=== PATIENT | female | born 1995 | race Caucasian/White ===

== ENCOUNTER 2021-02-26 21:31 | Emergency (ER) | payer OTHER ==
[2021-02-26 21:37] VITALS: BP 116/75; PULSE 106; TEMP 98; BMI 31.2
[2021-02-26] MEDS ORDERED: LACTATED RINGERS SOLUTION 1000 ML INFUS.BAG IV ONE (21:56)
[2021-02-26] MEDS ORDERED: ONDANSETRON 4 MG/2 ML VIAL IVPUSH ONE (21:57)
[2021-02-26] MEDS ORDERED: ONDANSETRON 4 MG/2 ML VIAL ONE (22:09)
[2021-02-26 22:40] LABS: BASO % 0.5 % (0-2.0); EOS % 0.3 % (0-4.5); HEMATOCRIT 38.2 % (32.4-45.2); HEMOGLOBIN 12.9 GM/dL (10.7-15.3); LYMPH % 34.3 % (8-40); MCH 28.7 pg (25.7-33.7); MCHC 33.7 g/dl (32.0-36.0); MEAN CELL VOLUME 85.3 fl (80-96); MEAN PLT VOLUME 9.1 fl (7.5-11.1); MONO % 4.9 % (3.8-10.2); PLATELET COUNT 263 10^3/uL (134-434); RBC 4.48 M/mm3 (3.60-5.2); RDW 12.6 % (11.6-15.6); WHITE BLOOD COUNT 4.8 K/mm3 (4.0-10.0)
[2021-02-26 22:55] LABS: CHLORIDE 114 mmol/L (98-107); SODIUM 147 mmol/L (136-145)
[2021-02-26 22:58] LABS: ALBUMIN 3.7 g/dl (3.4-5.0); ANION GAP 9 MMOL/L (8-16); BLOOD UREA NITROGEN 13.3 mg/dL (7-18); CALCIUM 8.4 mg/dL (8.5-10.1); CO2 24 mmol/L (21-32); GLUCOSE,RANDOM 94 mg/dL (74-106)
[2021-02-26 23:01] LABS: CREATININE 0.6 mg/dL (0.55-1.3); SGOT/AST 10 U/L (15-37); SGPT/ALT 24 U/L (13-61)
[2021-02-26 23:03] LABS: BILIRUBIN,TOTAL 0.2 mg/dL (0.2-1); TOT PROT 7.4 g/dl (6.4-8.2)
[2021-02-26 23:04] LABS: ALK PHOS 73 U/L (45-117)
[2021-02-27 00:52] LABS: EPI CELLS 26 /uL (0-25.1); HYALINE CASTS 2 /uL (0-3.1); URINE APPEARANCE CLEAR; URINE BACTERIA 2306 /uL (0-1359); URINE BILIRUBIN NEGATIVE (NEGATIVE); URINE COLOR YELLOW; URINE GLUCOSE (UA) NEGATIVE (NEGATIVE); URINE KETONE NEGATIVE (NEGATIVE); URINE LEUK ESTERASE 1+ (NEGATIVE); URINE NITRITE NEGATIVE (NEGATIVE); URINE PROTEIN NEGATIVE (NEGATIVE); URINE RBC 14 /uL (0-23.9); URINE UROBILINOGEN 0.2 mg/dL (0.2-1.0); URINE WBC 29 /uL (0-25.8)
[2021-02-27 02:11] LABS: COCAINE, UR NEGATIVE (NEGATIVE); METHADONE, UR NEGATIVE (NEGATIVE); OPIATES, URI NEGATIVE (NEGATIVE); PHENCYCLIDINE,URINE NEGATIVE (NEGATIVE); URINE AMPHETAMINES NEGATIVE (NEGATIVE); URINE BARBITURATES NEGATIVE (NEGATIVE); URINE BENZODIAZEPINES NEGATIVE (NEGATIVE)
== END 2021-02-27 03:43 | disposition home or self-care (01) ==
LOC: JER 21:31
PROC: 3E033GC Introduction of Other Therapeutic Substance into Peripheral Vein, Percutaneous Approach (ICD-10-PCS; principal; 2021-02-26)
DX: F10.929 Alcohol use, unspecified with intoxication, unspecified (principal)
CPT/HCPCS: 36415; 71045-TC-FY; 80053; 80307; 81003; 82550; 84484; 84703; 85025; 87086; 93005; 93010; 96374; 99285-25